=== PATIENT | male | born 2000 | race American Indian/Alaskan Native ===

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

== ENCOUNTER 2019-01-12 12:08 | Emergency (ER) | payer OTHER ==
[2019-01-12 12:31] VITALS: BP 111/72
--- NOTE | 2019-01-12 12:31 | Event Note ---
ED Screening Note ED Screening Note: numerous sexual partners penile discharge no pcp sexual partners women only has had sti in past no hiv testing ever done This initial assessment/diagnostic orders/clinical plan/treatment(s) is/are subject to change based on patients health status, clinical progression and re- assessment by fellow clinical providers in the ED. Further treatment and workup at subsequent clinical providers discretion. Patient/guardian urged not to elope from the ED as their condition may be serious if not clinically assessed and managed. Initial orders include: ua
--- NOTE | 2019-01-12 12:58 | Emergency Department Report ---
Chief Complaint: Urogenital-Male Stated Complaint: GENITALS AREA PAIN Time Seen by Provider: 01/12/19 12:30 - HPI History of Present Illness: Mr. Goodwin is a 18-year-old healthy male who desires to be checked for STD. He has penile discomfort with burning upon urination. He currently does not have an acute emergent condition which needs further treatment. I referred him to his local urgent care center. Medical screening exam performed and completed. - Exam Vital Signs: Vital Signs 01/12/19 12:29 Temperature 97.9 F Pulse Rate 61 Respiratory 18 Rate Blood Pressure 111/72 O2 Sat by Pulse 100 Oximetry MSE screening note: Focused history and physical exam performed. Due to findings the following was ordered: ED Disposition for MSE Clinical Impression: Urethritis Disposition: Z- MED SCREENING EXAM-LEFT Condition: Stable
== END 2019-01-12 13:15 | disposition left against medical advice (07) ==
LOC: ED 12:08
DX: N34.2 Other urethritis (principal)
CPT/HCPCS: 99282